=== PATIENT | female | born 1955 | race African-American/Black ===

== ENCOUNTER 2021-07-12 03:51 | Emergency (ER) | payer OTHER, BC ==
[~2021-07-12] VITALS: Ht 177.8 cm; Wt 115.7 kg
[~2021-07-12 03:51] MED LIST: ACETAMINOPHEN325 M1 PO; ADVAIR 250-501 EACH INH; ADVAIR HFA 230M12 GM; ALENDRONATE SOD70 MG PO; ALLOPURINOL 10100 M1 PO; AMARYL2 MG PO; AMBIEN 10 MG TA10 MG PO; ASPIRIN325; ATIVAN1 MG PO; AVAPRO 150 MG150 M1 PO; AVAPRO300 MG PO; AVELOX 400 MG400 MG PO; B-12 DOTS500 MCG PO; BUMETANIDE 1 MG1 M1 PO; CALTRATE-600 W1 EACH PO; CARDURA2 MG PO; CATAPRES0.2 MG PO; CLEOCIN HCL300 MG PO; CLONIDINE HCL0.2 M2 PO; CLONIDINE0.1 PO; COLACE100 MG PO; COMBIVENT INH; CYMBALTA30 MG PO; CYMBALTA60 MG PO; DIAZEPAM10 M1 PO; DUONEB 2.5-0.5 M3 ML INH; DURAGESIC1 EAC1; FENTANYL PATCH75 MCG TP; FERRO-TIME325 MG PO; FLEXERIL PO; INDOMETHACIN PO; IPRATROPIU0.2 MG/1 M INH; IPRATROPIUM INH; JANUVIA100 MG PO; LASIX 20 MG TAB20 MG PO; LEVAQUIN 500 M500 M2; LOPRESSOR 50 MG50 M1 PO; LYRICA 50 MG50 MG PO; LYRICA 75 MG CA75 MG PO; LYRICA100 MG PO; MACROBID 100 M100 M1 PO; MAXIMIN PACK1 EACH PO; MIRALAX17 GM PO; MIRALAX255 GM PO; MULTIVITAMINS PO; NEURONTIN 300300 M1 PO; NEURONTIN600 MG PO; OMEGA-31000 MG PO; PERCOCET 10-321 EACH PO; PERCOCET 10-651 EACH PO; PERCOCET 5-3251 EACH PO; PERCOCET PO; PHENERGAN 25 MG25 M1 PO; PLAVIX 75 MG TA75 MG PO; PREDNISONE 10 M10 M1 PO; PREDNISONE 10 M10 MG PO; PREDNISONE 20 M20 M1 PO; PREDNISONE 5 MG5 M1 PO; PREDNISONE 5 MG5 MG PO; PROTONIX40 M2 PO; REGLAN 5 MG TAB5 MG PO; REMERON15 MG PO; SENNA CONCENTR8.6 MG PO; SENNA PO; TRAMADOL 50 MG50 MG PO; ULORIC40 MG PO; VERAPAMIL ER120 MG PO; VERAPAMIL SR 1120 M1 PO; VERAPAMIL SR 1120 MG PO; VITAMIN B-12500 MCG PO; VITAMIN D 5050000 I1 PO; VITAMIN D35000 UNI1 PO; VITAMIN E400 UNI2 PO; VITAMIN E400 UNIT PO; VITAMINC500 PO; ZOCOR 10 MG TAB10 MG PO; ZOLOFT25 MG PO; ZPAK; ZPAK PO
[2021-07-12 05:23] LABS: BASOPHILS 0.7 % (0.0-2.0); EOSINOPHILS 2.7 % (0.0-3.0); HEMATOCRIT 35.1 % (37.0-47.0); HEMOGLOBIN 11.5 gm/dL (12.0-15.0); LYMPHOCYTES 60.6 % (24.0-44.0); MCH 29.6 pg (26.0-34.0); MCHC 32.6 g/dL (28.0-37.0); MCV 90.8 fL (80.0-100.0); PLATELET COUNT 332 thou/uL (150-400); RBC 3.87 mil/uL (4.20-5.00); RDW 13.9 % (10.5-14.5); WBC 11.8 thou/uL (4.0-11.0)
[2021-07-12 05:30] LABS: CALCIUM 8.7 mg/dL (8.5-10.1); CREATININE 2.4 mg/dL (0.6-1.0); POTASSIUM 4.6 mmol/L (3.5-5.1)
[2021-07-12 05:41] LABS: ALBUMIN 2.9 g/dL (3.4-5.0); TOTAL BILIRUBIN 0.3 mg/dL (0.2-1.0); TOTAL PROTEIN 7.5 g/dL (6.4-8.2)
[2021-07-12 05:46] LABS: URINE BILIRUBIN NEGATIVE (Negative); URINE BLOOD TRACE (Negative); URINE CLARITY CLEAR; URINE COLOR YELLOW; URINE GLUCOSE-RANDOM* NEGATIVE (Negative); URINE KETONES NEGATIVE (Negative); URINE NITRITE-REFLEX NEGATIVE (Negative); URINE PROTEIN (DIPSTICK) TRACE (Negative); URINE SPECIFIC GRAVITY 1.015 (1.005-1.035); URINE UROBILINOGEN 0.2 E.U./dl (0.2-1.0)
[2021-07-12 05:55] LABS: URINE LEUKOCYTES-REFLEX 1+ (Negative)
[2021-07-12 06:44] LABS: CASTS None Seen /LPF (None Seen); SQUAMOUS >10 Many /LPF (0-3)
[2021-07-12 06:45] LABS: BACTERIA-REFLEX 1-9 Few /HPF (None Seen); CRYSTALS None Seen /LPF (None Seen); URINE RBC None Seen /HPF (NONE SEEN); URINE WBC-REFLEX 6-15 Few /HPF (0-5)
[2021-07-12] MEDS ORDERED: CEPHALEXIN500 MG PO (06:51)
[2021-07-12 07:01] VITALS: BP 123/76
== END 2021-07-12 07:10 | disposition home or self-care (01) ==
LOC: ER 03:51
PROVIDERS: Emergency Medicine
DX: N39.0 Urinary tract infection, site not specified (principal); J44.9 Chronic obstructive pulmonary disease, unspecified; I10 Essential (primary) hypertension; E11.40 Type 2 diabetes mellitus with diabetic neuropathy, unspecified; J45.909 Unspecified asthma, uncomplicated; M06.9 Rheumatoid arthritis, unspecified; E66.9 Obesity, unspecified; Z68.36 Body mass index [BMI] 36.0-36.9, adult; Z90.49 Acquired absence of other specified parts of digestive tract; Z90.89 Acquired absence of other organs; Z90.711 Acquired absence of uterus with remaining cervical stump; Z88.5 Allergy status to narcotic agent; Z87.891 Personal history of nicotine dependence; Z79.899 Other long term (current) drug therapy